=== PATIENT | female | born 1990 | race African-American/Black ===

== ENCOUNTER 2024-06-17 23:59 | Emergency (ER) | payer SELFPAY ==
[~2024-06-17] VITALS: Ht 167.6 cm; Wt 109.0 kg
[2024-06-18] MEDS ORDERED: SODIUM CHLORIDE 0.9% 1,000 ML IV ONE (00:25)
[2024-06-18] MEDS ORDERED: ONDANSETRON HCl 4 MG/2 ML SDV IV ONE (00:25)
[2024-06-18 00:45] LABS: BASO% 0.2 % (0-3); EOS% 1.3 % (0-8); HEMATOCRIT 35.7 % (37.0-47.0); HEMOGLOBIN 11.5 g/dl (12.0-16.0); IMMATURE GRANULOCYTES 0.1 % (0.0-5.0); LYMPH% 37.2 % (15-41); MEAN CELL VOLUME 84.8 fL CALC (80.0-100.0); MEAN CORPUSCULAR HGB 27.3 pG CALC (26.0-32.0); MEAN CORPUSCULAR HGB CONC 32.2 g/dL CAL (32.0-36.0); MONO% 7.7 % (2-13); NEUT# 5.1 thou/uL (2.00-7.15); NEUT% 53.5 % (42-76); RED BLOOD COUNT 4.21 mill/uL (4.20-5.60); RED CELL DISTRI WIDTH 12.9 % (11.5-15.5)
[2024-06-18 00:45] LABS: URINE BILIRUBIN - DIPSTICK Negative (NEGATIVE); URINE BLOOD DIPSTICK Moderate (NEGATIVE); URINE GLUCOSE - DIPSTICK Negative (NEGATIVE); URINE KETONE Negative (NEGATIVE); URINE LEUK ESTERASE Trace (NEGATIVE); URINE NITRITE - DIPSTICK Negative (Negative); URINE PROTEIN - DIPSTICK Negative (NEG-TRACE); URINE UROBILINOGEN - DIPSTICK 0.2 E.U./dL (0.2)
[2024-06-18 00:48] LABS: URINE COLOR Yellow
[2024-06-18 01:01] LABS: URINE BACTERIA MODERATE hpf; URINE SQUAMOUS EPITHELIAL CELL MANY EPI/hpf (0-FEW); URINE TRANSITIONAL EPI. CELLS FEW hpf; URINE WBC 0-2 WBC/hpf (0-5)
[2024-06-18 01:10] LABS: ALBUMIN 3.6 g/dL (3.2-5.0); BILIRUBIN, TOTAL 0.6 mg/dL (0.02-1.3); CREATININE 0.5 mg/dL (0.5-1.0); TOTAL PROTEIN 6.6 g/dL (6.3-8.2)
[2024-06-18] MEDS ORDERED: NITROFURANTOIN MONOHYDRATE/MAC (MACROBID) 100 MG/CAP PO ONE (03:50)
[2024-06-18 03:57] VITALS: BP 140/86
[2024-06-18] MEDS ORDERED: NITROFURANTOIN100 M1 PO (04:01)
== END 2024-06-18 04:20 | disposition home or self-care (01) ==
LOC: ED 23:59
PROVIDERS: Family Medicine
DX: O26.891 Other specified pregnancy related conditions, first trimester (principal); R10.2 Pelvic and perineal pain; R30.0 Dysuria; O09.521 Supervision of elderly multigravida, first trimester; Z3A.11 11 weeks gestation of pregnancy; R82.71 Bacteriuria
CPT/HCPCS: J2405

== ENCOUNTER 2024-07-25 15:37 | Emergency (ER) | payer SELFPAY ==
[~2024-07-25] VITALS: Ht 167.6 cm; Wt 99.7 kg
[~2024-07-25 15:37] MED LIST: NITROFURANTOIN100 M1 PO
[2024-07-25 16:54] VITALS: BP 138/63
== END 2024-07-25 19:45 | disposition home or self-care (01) | DRG 951 ==
LOC: ED 15:37 → LWOBS 19:45 → ED 19:45
DX: Z53.21 Procedure and treatment not carried out due to patient leaving prior to being seen by health care provider (principal)